=== PATIENT | female | born 1955 | race Caucasian/White ===

== ENCOUNTER 2016-12-18 19:30 | Emergency (ER) | payer BC ==
[~2016-12-18] VITALS: Ht 157.5 cm; Wt 90.7 kg
[~2016-12-18 19:30] MED LIST: ATIVAN0.5 MG PO; BENADRYL25 MG PO; MAGNESIUM OXID400 MG PO; NORCO 325-5 MG1 TAB PO; ONE DAILY MULT1 EAC1 PO; SYNTHROID175 MCG PO; SYNTHROID300 MCG PO
== END 2016-12-18 22:10 | disposition short-term general hospital (02) ==
LOC: ER 19:30
DX: J11.1 Influenza due to unidentified influenza virus with other respiratory manifestations (principal); E03.9 Hypothyroidism, unspecified; F41.9 Anxiety disorder, unspecified; D50.9 Iron deficiency anemia, unspecified; M05.9 Rheumatoid arthritis with rheumatoid factor, unspecified; Z90.49 Acquired absence of other specified parts of digestive tract; Z98.890 Other specified postprocedural states; Z79.899 Other long term (current) drug therapy; Z87.891 Personal history of nicotine dependence